=== PATIENT | female | born 1980 | race Hispanic/Latino ===

== ENCOUNTER 2020-09-24 13:51 | Outpatient (RCR) | payer OTHER | END 2020-10-18 | LOC: OT 13:51 | PROVIDERS: ATTEND Specialist | DX: M77.12 Lateral epicondylitis, left elbow (principal); M77.11 Lateral epicondylitis, right elbow ==

== ENCOUNTER → 2020-10-18 | Outpatient (RCR) | payer OTHER | LOC: OT 09-28 08:13 | PROVIDERS: ATTEND Specialist | DX: M77.11 Lateral epicondylitis, right elbow (principal); M77.12 Lateral epicondylitis, left elbow; M25.521 Pain in right elbow; M25.522 Pain in left elbow; R53.1 Weakness; M25.621 Stiffness of right elbow, not elsewhere classified; M25.622 Stiffness of left elbow, not elsewhere classified ==

== ENCOUNTER 2020-11-16 15:00 | Outpatient (RCR) | payer BC, OTHER | END 2020-11-18 | LOC: OT 15:00 | PROVIDERS: ATTEND Specialist | DX: M77.12 Lateral epicondylitis, left elbow (principal); M77.11 Lateral epicondylitis, right elbow ==

== ENCOUNTER 2020-11-21 15:43 | Outpatient (RCR) | payer BC | END 2020-12-16 | LOC: OT 15:43 | PROVIDERS: ATTEND Specialist | DX: M77.12 Lateral epicondylitis, left elbow (principal); M77.11 Lateral epicondylitis, right elbow ==